=== PATIENT | female | born 1990 | race Caucasian/White ===

== ENCOUNTER → 2020-11-28 13:02 | Outpatient (CLI) | payer OTHER, SELFPAY ==
[2020-11-28] MEDS: COVID-19 VACC #1, MRNA(MOD) 100 MCG/0.5 ML VIAL IM (13:21)
== END ==
PROVIDERS: Visit Provider Internal Medicine
DX: Z23 Encounter for immunization (principal)
CPT/HCPCS: 0011A; 91301

== ENCOUNTER → 2020-12-22 15:13 | Outpatient (CLI) | payer OTHER, SELFPAY ==
[2020-12-22] MEDS: COVID-19 VACC #2, MRNA(MOD) 100 MCG/0.5 ML VIAL IM (15:16)
== END ==
PROVIDERS: Visit Provider Internal Medicine
DX: Z23 Encounter for immunization (principal)
CPT/HCPCS: 0012A; 91301